=== PATIENT | female | born 1990 | race Hispanic/Latino ===

== ENCOUNTER 2017-11-14 06:02 | Day surgery (SDC) | payer OTHER ==
[2017-11-14 06:39] VITALS: BP 119/74; TEMP 98.6; BMI 30.7
--- NOTE | 2017-11-14 07:01 | PDOC.LDHP ---
Labor and Delivery H&P Chief complaint: other (Left lower quadrant pain at 32 weeks) HPI: @0700: L&D triage: Patient of Dr Foss. CC: left lower quadrant pain HPI: 27 yo SAB1 (at 16 weeks) with prior cholestasis in last , now at 32 weeks 4 days with left lower quadrant discomfort. No trauma, no VB, no abnormal dsch, no recent sex. No headaches, no fever, no issues. Otherwise well. Good FM Review of systems: complete ROS completed and negative as per HPI. Current gestational age (weeks): 32 (4) Dating criteria: last menstrual period Grav: 3 Para: 1 (one loss at 16 weeks) Current complications: none Abnormal US findings: No Current medications: none Previous surgical history: none Allergies/Adverse Reactions: Allergies Allergy/AdvReac Type Severity Reaction Status Date / Time No Known Allergies Allergy Unverified 11/14/17 06:40 Social history: none - Physical Exam Vital signs reviewed and normal: yes General: NAD Heart: RRR Lungs: CTAB Abdomen: gravid FHT: category 1 Angels contractions every: no contractions - Assessment Left pelvic discomfort at 32 weeks, no evidence contractions at this time. - Plan Plan: observation in L&D (WE will observe in L&D for now. I have ordered cath UA , CBC and CMP. No sxs of cholestasis currently for I have deferred bile acids. Keep on monitors for now.)
--- NOTE | 2017-11-14 07:12 | PDOC.EVN ---
Event Note - Event Note Event Note: ADDENDUM at 0715: After further H&P review, and interview again, patient states she had bile acid levels drawn last week but doesnt know results. She is concerned of cholestasis and states some mild itching at opas... I have discussed these with her. I will order serum bile acids, although will not return today. She can follow up results in a few days. I have also ordered FFN for record although the fact that cervix is closed is reassurring. Strip Cat 1...uterine irritability, but no c/o ctx.
[2017-11-14 07:39] LABS: Bilirubin Negative (Negative); Blood, Urine Negative (Negative); Clarity CLEAR (Clear); Glucose, Urine (Dipstick) Negative (Negative); Leukocyte Negative (Negative); Nitrite Negative (Negative); Protein, Urine (Dipstick) Negative (Neg-Trace); Specific Gravity, Urine 1.014 (1.002-1.036)
[2017-11-14 07:49] LABS: Fetal Fibronectin Negative (Negative)
[2017-11-14 07:50] LABS: FFN Internal QC Analyzer PASS (PASS); FFN Internal QC Cassette PASS (PASS)
[2017-11-14 08:35] LABS: #Basophils 0.1 thou/uL (0.0-0.2); #Eosinphils 0.1 thou/uL (0.0-0.7); #Monocytes 0.4 thou/uL (0.11-0.59); %Basophils 1.2 % (0.0-1.0); %Eosinophils 0.6 % (0.0-10.0); %Lymphocytes 23.2 % (21.0-51.0); %Monocytes 4.8 % (0.0-10.0); %Neutrophils 70.2 % (42.0-75.0); Hemoglobin 11.6 g/dL (12.0-16.0); Mean Corpuscular HGB CONC 33.4 g/dL (32.0-36.0); Mean Corpuscular Hemoglobin 32.2 pg (27.0-31.0); Mean Corpuscular Volume 96.1 fl (81.0-99.0); Mean Platelet Volume 10.7 fL (7.4-10.4); Platelet Count 196 thou/uL (130-400); RBC Distribution Width 12.6 % (11.5-14.5); Red Blood Cell (RBC) Count 3.61 mill/uL (4.20-5.40); White Blood Cell (WBC) Count 8.5 thou/uL (4.8-10.8)
[2017-11-14 08:55] LABS: ALT (SGPT) 272 U/L (8-55); AST (SGOT) 189 U/L (5-34); Albumin 3.1 g/dL (3.5-5.0); Alkaline Phosphatase 227 U/L (40-150); Anion Gap 13 mmol/L (10-20); BUN (Urea Nitrogen) 5 mg/dL (7.0-18.7); Bilirubin, Total 0.6 mg/dL (0.2-1.2); Calc. Creatinine Clearance 187 mL/min (70-130); Calcium 8.9 mg/dL (7.8-10.44); Carbon Dioxide 19 mmol/L (22-29); Chloride 108 mmol/L (98-107); Estimated GFR-MDRD Greater than 90; Globulin 3.4 g/dL (2.4-3.5); Glucose 80 mg/dL (70-105); Potassium 3.7 mmol/L (3.5-5.1); Protein, Total 6.5 g/dL (6.0-8.3); Sodium 136 mmol/L (136-145)
== END 2017-11-14 09:50 | disposition home or self-care (01) ==
LOC: L&D/OP 06:02
PROVIDERS: ATTEND Student in an Organized Health Care Education/Training Program
DX: O99.89 Other specified diseases and conditions complicating pregnancy, childbirth and the puerperium (principal); R10.32 Left lower quadrant pain; Z3A.32 32 weeks gestation of pregnancy
CPT/HCPCS: 36415; 51701; 59025; 80053; 81003; 82239; 82731; 85025; 99285; A4353

== ENCOUNTER 2017-11-15 12:02 | Day surgery (SDC) | payer OTHER ==
[2017-11-15 12:58] VITALS: BMI 30.4
[2017-11-15 14:10] LABS: #Basophils 0.1 thou/uL (0.0-0.2); #Lymphocytes 1.9 thou/uL (1.20-3.40); #Monocytes 0.4 thou/uL (0.11-0.59); %Basophils 0.8 % (0.0-1.0); %Eosinophils 0.4 % (0.0-10.0); %Lymphocytes 20.1 % (21.0-51.0); %Monocytes 4.5 % (0.0-10.0); %Neutrophils 74.2 % (42.0-75.0); Hemoglobin 11.2 g/dL (12.0-16.0); Mean Corpuscular HGB CONC 34.1 g/dL (32.0-36.0); Mean Corpuscular Hemoglobin 32.4 pg (27.0-31.0); Mean Corpuscular Volume 95.2 fl (81.0-99.0); Mean Platelet Volume 10.1 fL (7.4-10.4); Platelet Count 198 thou/uL (130-400); RBC Distribution Width 12.6 % (11.5-14.5); Red Blood Cell (RBC) Count 3.47 mill/uL (4.20-5.40); White Blood Cell (WBC) Count 9.5 thou/uL (4.8-10.8)
[2017-11-15 14:29] LABS: ALT (SGPT) 239 U/L (8-55); AST (SGOT) 162 U/L (5-34); Alkaline Phosphatase 219 U/L (40-150); Anion Gap 12 mmol/L (10-20); BUN (Urea Nitrogen) 5 mg/dL (7.0-18.7); Bilirubin, Total 0.6 mg/dL (0.2-1.2); Calc. Creatinine Clearance 183 mL/min (70-130); Calcium 8.8 mg/dL (7.8-10.44); Carbon Dioxide 19 mmol/L (22-29); Chloride 108 mmol/L (98-107); Estimated GFR-MDRD Greater than 90; Globulin 3.5 g/dL (2.4-3.5); Glucose 105 mg/dL (70-105); Potassium 3.5 mmol/L (3.5-5.1); Protein, Total 6.5 g/dL (6.0-8.3); Sodium 135 mmol/L (136-145)
--- NOTE | 2017-11-15 22:50 | SS ---
LABOR AND DELIVERY TRIAGE NOTE DATE OF EVALUATION: 11/15/2017. ATTENDING PHYSICIAN: Liza Foss M.D., [facility]. EVALUATING PHYSICIAN: Jaron Godoy M.D. CHIEF COMPLAINT: Left lower quadrant discomfort. HISTORY OF PRESENT ILLNESS: Ms. Davis is a 27-year-old G3, P1, AB1 with an estimated date of confi nement of 01/05/2018, who presents complaining of pain identical to which she was evaluated for on by Dr. Esparza. She states that the pain is a pulling in nature and she notice this at most w hen her baby moves. She denies generalized contractions, vaginal bleeding or ruptured membranes. He r care has been at [facility] with Dr. Foss. She has had findings cons istent with cholestasis of and states that she is on a "liver medication" for this, but she does not have this with her. PAST OBSTETRICAL HISTORY: Includes one vaginal delivery and one second trimester loss. Her vaginal delivery was at term. PAST MEDICAL HISTORY: Unremarkable. CURRENT MEDICATIONS: vitamins, "liver pill." PAST SURGICAL HISTORY: None. ALLERGIES: No known allergies. SOCIAL HISTORY: She denies tobacco, alcohol, or drug use. REVIEW OF SYSTEMS: She denies nausea, vomiting, fever, chills, headache, or visual changes. PHYSICAL EXAMINATION: GENERAL: Generally she is responsive, alert, oriented, and in no acute distress. ABDOMEN: Soft, gravid and nontender. PELVIC: Shows the cervix to be closed, posterior with the presenting part high. heart tones a re stable with good beat to beat variability. No decelerations are seen. No regular uterine contrac tions are seen. LABORATORY DATA: Laboratory is repeated today. Her white count is 9.5, hemoglobin and hematocrit 11 .2 and 33.0, and platelet count is 198. Chemistries are also repeated and she has a BUN and creatini ne of 5.63 respectively. Her AST and ALT are once again elevated and essentially unchanged at 162 an d 239 respectively. Her total bilirubin is 0.6. ASSESSMENT: 1. A 32-week intrauterine , no evidence of labor. 2. Suspected round ligament pain. 3. Elevated liver function testing without evidence of preeclampsia. She appears to be on medicine for cholestasis, but I cannot confirm this. PLAN: At this time, the patient will be discharged home. She was given strict precautions and is to ld to return should she begin to contract, have vaginal bleeding, or notice rupture of membranes. Scarlett enriqueta understands her discharge instructions. All communications were performed using the golf course architect ph one.
== END 2017-11-15 15:05 ==
LOC: L&D/OP 12:02
PROVIDERS: ATTEND Student in an Organized Health Care Education/Training Program
DX: O99.89 Other specified diseases and conditions complicating pregnancy, childbirth and the puerperium (principal); R10.32 Left lower quadrant pain; R79.89 Other specified abnormal findings of blood chemistry; Z3A.32 32 weeks gestation of pregnancy; Z79.899 Other long term (current) drug therapy
CPT/HCPCS: 36415; 80053; 85025; 99283

== ENCOUNTER 2021-03-05 19:07 | Emergency (ER) | payer OTHER ==
[2021-03-05 20:56] LABS: ALT (SGPT) 22 U/L (8-55); AST (SGOT) 24 U/L (5-34); Albumin 4.9 g/dL (3.5-5.0); Alkaline Phosphatase 124 U/L (40-110); Anion Gap 20 mmol/L (10-20); BUN (Urea Nitrogen) 13 mg/dL (7.0-18.7); Bilirubin, Total 0.7 mg/dL (0.2-1.2); Calc. Creatinine Clearance 0 mL/min (70-130); Calcium 10.4 mg/dL (7.8-10.44); Carbon Dioxide 17 mmol/L (22-29); Chloride 105 mmol/L (98-107); Globulin 5.2 g/dL (2.4-3.5); Glucose 133 mg/dL (70-105); Potassium 4.5 mmol/L (3.5-5.1); Protein, Total 10.1 g/dL (6.0-8.3); Sodium 137 mmol/L (136-145)
[2021-03-05 21:08] LABS: Band 11 % (5-11); Hemoglobin 15.2 g/dL (12.0-16.0); Lymphocytes 9 % (21-51); MDiff Complete? YES; Mean Corpuscular HGB CONC 33.1 g/dL (32.0-36.0); Mean Corpuscular Hemoglobin 27.7 pg (27.0-31.0); Mean Corpuscular Volume 83.7 fL (78.0-98.0); Mean Platelet Volume 9.8 fL (7.4-10.4); Metamyelocyte 2 % (0-0); Monocytes 2 % (0-10); Neutrophil 76 % (42-75); Platelet Count 254 thou/uL (130-400); Platelet Morphology Comment Appears Adequate; RBC Distribution Width 13.9 % (11.5-14.5); RBC Morphology Normal; White Blood Cell (WBC) Count 21.2 thou/uL (4.8-10.8)
== END 2021-03-05 21:34 | disposition left against medical advice (07) ==
LOC: ERS 19:07
DX: Z53.21 Procedure and treatment not carried out due to patient leaving prior to being seen by health care provider (principal)
CPT/HCPCS: 36415; 80053; 85025